=== PATIENT | male | born 1960 | race Caucasian/White ===

== ENCOUNTER → 2019-05-20 | Outpatient (CLI) | payer MEDICAID ==
[~2019-05-20] MED LIST: None at this Time
[2019-05-20 14:59] LABS: INTERNATIONAL NORMALIZED RATIO 1.07 (0.93-1.1); PROTHROMBIN TIME 11.4 Seconds (9.6-11.5)
[2019-05-20 15:02] LABS: ALBUMIN 4.4 g/dL (3.4-5.0); ANION GAP 7 mmol/L (5-15); CALCIUM 9.1 mg/dL (8.5-10.1); CHLORIDE 109 mmol/L (98-107)
[2019-05-20 15:05] LABS: ALANINE AMINOTRANSFERASE 33 U/L (12-78); ALKALINE PHOSPHATASE 79 U/L (45-117); BILIRUBIN,TOTAL 1.8 mg/dL (0.2-1.0); CREATININE 0.74 mg/dL (0.7-1.3)
[2019-05-20 16:35] LABS: BASOPHILS # (AUTO) 0.06 x10^3/uL (0-0.1); BASOPHILS % (AUTO) 1 % (0-1); EOSINOPHILS # (AUTO) 0.08 x10^3/uL (0-0.4); EOSINOPHILS % (AUTO) 1 % (1-7); LYMPHOCYTES # (AUTO) 1.61 x10^3/uL (1-3.4); LYMPHOCYTES % (AUTO) 25 % (22-44); MD NO; MEAN CORPUSCULAR HEMOGLOBIN 31.7 pg (27.5-34.5); MEAN CORPUSCULAR HGB CONC 34.1 g/dL (33.2-36.2); MEAN CORPUSCULAR VOLUME 92.8 fL (81-97); MEAN PLATELET VOLUME 11.4 fL (7.4-10.4); MONOCYTES # (AUTO) 0.54 x10^3/uL (0.2-0.8); MONOCYTES % (AUTO) 9 % (2-9); NEUTROPHILS # (AUTO) 4.11 x10^3/uL (1.8-6.8); NEUTROPHILS % (AUTO) 64 % (42-75); PLATELET COUNT 147 x10^3/uL (130-400); RED BLOOD COUNT 5.59 x10^6/uL (4.38-5.82); RED CELL DISTRIBUTION WIDTH 12.9 % (9.4-14.8)
== END | disposition home or self-care (01) ==
LOC: STAR 13:49
PROVIDERS: ATTEND Orthopaedic Surgery
DX: Z01.818 Encounter for other preprocedural examination (principal); M16.11 Unilateral primary osteoarthritis, right hip
CPT/HCPCS: 36415; 80053; 83036; 85025; 85610; 85730; 87081; 93005

== ENCOUNTER 2019-07-24 10:53 | Day surgery (SDC) | payer MEDICAID ==
[~2019-07-24] VITALS: Ht 172.7 cm; Wt 101.6 kg
[~2019-07-24 10:53] MED LIST changes: +EPINEPHRINE 1 MG/ML, 1ML ONE; +KETOROLAC 60 MG/2 ML ONE; +ROPIvacaine/PF 0.5%, 30 ML ONE; +TRANEXAMIC ACID 100 MG/ML, 10ML ONE; +VANCOMYCIN 1,000 MG ONE
[2019-07-24] MEDS ORDERED: MIDAZOLAM 1 MG/ML, 2ML ONE (10:56)
[2019-07-24] MEDS ORDERED: FENTANYL PF 250 MCG/5ML ONE ×2 (10:56→12:21)
[2019-07-24] MEDS ORDERED: NEOSTIGMINE 1 MG/ML, 10ML ONE (10:59)
[2019-07-24] MEDS ORDERED: CEFAZOLIN 1,000 MG ONE (10:59)
[2019-07-24] MEDS ORDERED: GLYCOPYRROLATE 0.2MG/1ML, 5ML ONE (10:59)
[2019-07-24] MEDS ORDERED: PROPOFOL 10 MG/ML, 20ML ONE (10:59)
[2019-07-24] MEDS ORDERED: ROCURONIUM 10MG/ML,5ML ONE (10:59)
[2019-07-24] MEDS ORDERED: LACTATED RINGERS 1,000 ML IV SCH (11:12)
[2019-07-24] MEDS ORDERED: GABAPENTIN 300 MG CAPSULE PO ONE (11:30)
[2019-07-24] MEDS ORDERED: ACETAMINOPHEN 500 MG TABLET PO ONE (11:30)
[2019-07-24] MEDS ORDERED: CHLORHEXIDINE 15 ML UDC MM ONE (11:30)
[2019-07-24] MEDS ORDERED: NS + 20MEQ KCL 1,000 ML IV SCH (11:31)
[2019-07-24] MEDS ORDERED: OXYcodone 5 MG/5 ML ORAL.SOL UDC PO PRN (12:00)
[2019-07-24] MEDS ORDERED: BISACODYL 10 MG SUPP PR PRN (12:00)
[2019-07-24] MEDS ORDERED: ONDANSETRON 4 MG TABLET PO PRN (12:00)
[2019-07-24] MEDS ORDERED: HYDROmorphone 1 MG/ML, 1ML INJ IVPush PRN (12:00)
[2019-07-24] MEDS ORDERED: morphine SULFATE 10 MG/ML, 1ML IVPush PRN (12:00)
[2019-07-24] MEDS ORDERED: ONDANSETRON 2MG/ML, 2ML IVPush PRN (12:00)
[2019-07-24] MEDS ORDERED: ACETAMINOPHEN 650 MG/20.3 ML UDC PO PRN (12:00)
[2019-07-24] MEDS ORDERED: MAGNESIUM HYDROXIDE 8%, 30ML UDC PO PRN (12:00)
[2019-07-24] MEDS ORDERED: SENNA/DOCUSATE TABLET PO PRN (12:00)
[2019-07-24] MEDS ORDERED: MEPERIDINE/PF 25MG/0.5ML IVPush PRN (12:00)
[2019-07-24] MEDS ORDERED: DIPHENHYDRAMINE 25 MG CAPSULE PO PRN (12:00)
[2019-07-24] MEDS ORDERED: ONDANSETRON 2MG/ML, 2ML IV PRN (12:00)
[2019-07-24] MEDS ORDERED: OXYcodone IR 5MG TABLET PO PRN (12:00)
[2019-07-24] MEDS ORDERED: EPINEPHRINE 1 MG/ML, 1ML INFIL ONE (12:15)
[2019-07-24] MEDS ORDERED: VANCOMYCIN 1,000 MG IM ONE (12:15)
[2019-07-24] MEDS ORDERED: KETOROLAC 30 MG/1 ML IM ONE (12:15)
[2019-07-24] MEDS ORDERED: ROPIvacaine/PF 0.5%, 30 ML INFIL ONE (12:15)
[2019-07-24] MEDS ORDERED: OXYcodone 5 MG/5 ML ORAL.SOL UDC ONE (13:19)
[2019-07-24] MEDS ORDERED: FENTANYL PF 100 MCG/2ML ONE (13:32)
[2019-07-24] MEDS: FENTANYL PF 100 MCG/2ML IV PRN ×2 (13:34→13:49)
[2019-07-24 14:50] VITALS: BP 99/65
[2019-07-24] MEDS: ASPIRIN 81 MG TABLET EC PO SCH (18:20)
[2019-07-24 18:39] VITALS: BP 121/78
[2019-07-24] MEDS ORDERED: CEFAZOLIN PMX 2GM/50ML 50 ML IVPB SCH (19:00)
[2019-07-24] MEDS: CEFAZOLIN PMX 2GM/50ML 50 ML IVPB SCH (20:12)
[2019-07-24] MEDS: DOCUSATE 100 MG CAPSULE PO SCH (20:12)
[2019-07-24] MEDS: HYDROcodone/APAP 5/325 TABLET PO PRN (20:59)
[2019-07-24] MEDS ORDERED: ZOLPIDEM 5MG TABLET PO PRN (21:00)
[2019-07-24] MEDS ORDERED: SODIUM CHLORIDE 0.9%, 500ML IVBOLUS ONE (23:30)
[2019-07-24 23:36] VITALS: BP 101/66
[2019-07-25] MEDS: HYDROcodone/APAP 5/325 TABLET PO PRN ×2 (02:14→13:13)
[2019-07-25 04:06] VITALS: BP 106/60
[2019-07-25] MEDS: CEFAZOLIN PMX 2GM/50ML 50 ML IVPB SCH (04:24)
[2019-07-25] MEDS: ASPIRIN 81 MG TABLET EC PO SCH (05:16)
[2019-07-25] MEDS ORDERED: DEXAMETHASONE 4 MG/ML, 1ML IVPush SCH (06:00)
[2019-07-25 06:38] VITALS: BP 105/67
[2019-07-25] MEDS: DOCUSATE 100 MG CAPSULE PO SCH (08:41)
[2019-07-25] MEDS ORDERED: TAMSULOSIN 0.4 MG CAP.ER.24H PO SCH (09:00)
[2019-07-25] MEDS ORDERED: OXYC5TAB2 PO (10:53)
[2019-07-25] MEDS ORDERED: TRAM50TA2 PO (10:54)
[2019-07-25] MEDS ORDERED: MELO7.5T31 PO (10:55)
[2019-07-25] MEDS ORDERED: NS + 20MEQ KCL 1,000 ML IV SCH (11:31)
== END 2019-07-25 15:29 | disposition home or self-care (01) ==
LOC: OUT 10:53 → 4NE 14:21 → OUT 20:12 → 4NE 20:22
PROVIDERS: ADMIT Orthopaedic Surgery; ATTEND Orthopaedic Surgery
DX: Z03.818 Encounter for observation for suspected exposure to other biological agents ruled out (principal); M16.11 Unilateral primary osteoarthritis, right hip; E11.9 Type 2 diabetes mellitus without complications
CPT/HCPCS: 27130; 36415; 72170; 73501; 73502; 73700; 76000; 85014; 85018; 96365; 96366; 96375; 97162; 97165; C1713; C1776; G0378; J0171; J0690; J1100; J1885; J2250; J2704; J2710; J2795; J3010; J3370; J3480; J7040; J7120; U0001